=== PATIENT | female | born 1960 | race Caucasian/White ===

== ENCOUNTER 2019-12-18 08:00 | Outpatient (REF) | payer MEDICARE, SELFPAY | END 2019-12-18 08:01 | disposition home or self-care (01) | LOC: HO.RADIR 08:00 | PROVIDERS: Visit Provider Anesthesiology | DX: Z45.1 Encounter for adjustment and management of infusion pump (principal) | CPT/HCPCS: 62370 ==

== ENCOUNTER 2019-12-31 06:48 | Outpatient (REF) | payer MEDICARE, SELFPAY | END 2019-12-31 06:49 | disposition home or self-care (01) | LOC: HO.LAB 06:48 | PROVIDERS: Visit Provider Internal Medicine | DX: Z20.828 Contact with and (suspected) exposure to other viral communicable diseases (principal) | CPT/HCPCS: C9803; U0003 ==

== ENCOUNTER 2023-03-07 10:18 | Outpatient (AMB) | payer MEDICARE, SELFPAY ==
--- NOTE | 2023-03-07 10:18 | A.OFFVIS_ITS ---
Intake Intake Visit Reasons: Per discuss concentration Allergies prednisone [PREDNISONE] Allergy (Severe, Unverified 11/08/19 15:18) HIVES, hive cortisone [CORTISONE] Allergy (Intermediate, Unverified 11/08/19 15:18) FLUSHING Iodinated Contrast Media [IV Dye, Iodine Containing] Allergy (Mild, Unverified 11/08/19 15:18) HIVES gabapentin Allergy (Unknown, Verified 10/05/16 00:00) fentanyl [FENTANYL] Adverse Reaction (Severe, Unverified 11/08/19 15:18) VOMITING corn [CORN] Adverse Reaction (Intermediate, Unverified 11/08/19 15:18) N/V/D AND ABD PAIN gluten [GLUTEN] Adverse Reaction (Intermediate, Unverified 11/08/19 15:18) UPSET ABD codeine [Codeine] Adverse Reaction (Mild, Unverified 11/08/19 15:18) VOMITING meperidine [From Demerol] Adverse Reaction (Mild, Unverified 11/08/19 15:18) VOMITING morphine [Morphine] Adverse Reaction (Mild, Unverified 11/08/19 15:18) VOMITING Gluten Allergy (Unknown, Uncoded 10/05/16 00:00) stomach upset,brain fog IVP Dye Allergy (Unknown, Uncoded 10/05/16 00:00) narcotics Allergy (Unknown, Uncoded 10/05/16 00:00) nausea and vomiting Anesthetic Maximum Strength Adverse Reaction (Unknown, Uncoded 10/05/16 00:00) nausea and vomiting corn Adverse Reaction (Unknown, Uncoded 10/17/19 00:00) gluten Adverse Reaction (Unknown, Uncoded 10/17/19 00:00) pain meds Adverse Reaction (Unknown, Uncoded 10/17/19 00:00) HPI HPI Comments History of Present Illness Details Jada nielsen is very pleasant 62 years old female who is calling my office today after long period of absence. Originally she came to my office with advanced Complex regional pain syndrome type 1 of the right lower extremity mainly right foot with radiological evidence of bone loss. She went for spinal cord stimulator implant on 06/17/2017. This improved her symptoms for many months however over the past 6 years her Complex regional pain syndrome pain started to worsen and her condition and spinal cord stimulator stop helping her. She reported increasingly painful right foot and ankle symptoms she tried to make adjustments to her Medtronic stimulation several times with no improvement. She went to vascular surgeon Dr. Blue and he found the vascular examination unremarkable. She was referred to us and she was offered intrathecal pain pump procedure. She went for multiple trials of intrathecal drug delivery system pain pump she had trial with morphine, trial with Dilaudid, and trial with fentanyl. Unfortunately she had side effects with all of her opioid medications there. She went for a trial of sufentanyl and this was the only way to alleviate her pain without any side effects. The pain pump was implanted and she had significant pain relief on pain pump implantation. The pain became much more manageable and much less severe. Ambulation improved. Patient had to relocate to [facility] and she started to feel her pump there. The concentration of the medication was increased eventually in her pain pump, recently patient reported 2 episodes of respiratory arrest on pain pump refill. Both of the respiratory arrest were treated with naloxone. She was successfully resuscitated. She does not want to continue to perform pump refills in [place]. She wants to come back to this office to refill for pain pump although it is [address] from [place] [facility]. I explained to the patient that she is welcome to come back for refilling of her pumps here or have her pump refilled in her house with [employer] refill [employer], however I need to know that integrity of her system is intact. She reported to me that she lost a lot of weight and the pain pump she had in her buttock had to be relocated into the abdomen. I explained to her that I will schedule her for dye study interrogation of the pain pump and after that I will be able to assume the care over the patient's pain pump and her painful condition. On the physical exam her right foot was presenting with discoloration, mottling, cool to touch, sausage appearing digits, allodynia, dysesthesia up to the knee anteriorly, nail thickening, mild symptoms on the left foot similar to the right foot. Peripheral pulses +1 dorsalis pedis posterior tibial. Neurologic normal strength tone and reflexes. [facility] Medical History (Updated 03/07/23 @ 12:32 by Miguelangel Proctor MD) Complex regional pain syndrome i of lower limb, bilateral Review of Systems Const All systems reviewed & are unremarkable except as noted in HPI and below Assessment & Plan Assessment & Plan (1) Complex regional pain syndrome i of lower limb, bilateral: Code(s): G90.523 - Complex regional pain syndrome I of lower limb, bilateral Plan: Plan This patient wants to return to my practice to continue pain pump refills here or she considers to refill her pump in her household under my order in [facility]. She was in my office treated for Complex regional pain syndrome of right lower extremity and potentially mild Complex regional pain syndrome of the left lower extremity with intrathecal pain pump running sufentanyl. When she was in my office the concentration of the so fentanyl was 100 micro g per mL. Currently her concentration is 500 micro g per mL. She experienced on 2 of the refills severe episodes of respiratory arrest which was treated with naltrexone. In the order to take over of these pump refills for her I need to perform a dye study to make sure that there was no extravasation of the contrast in her system. The concentration was decreased to 250 micro g per mL but with her doses of the medication she has to have her pump refilled once in 6 weeks. I will schedule her for dye studies and after that I will assume the care of this patient with her pain pump. If I will see extravasation I probably would need to perform revision of this pain pump. Patient Instructions: It was very prolonged and difficult discussion where I had to explore social circumstances of this patient. Including her insurance her place of living and her prior records. I testify here by that the conversation, exploration, prior record ring, organizing this note took total of 45 minutes. Telehealth Telehealth Location of provider rendering services: practice address Location of patient: address on file Patient Identification confirmed using: Name, : Yes Telehealth method: voice only Patient verbally consented to treatment: Yes Patient verbally consented to billing insurance company: Yes Patient informed of any privacy concerns related to visit: Yes Coding Level of Care Code Tele Est Pt Level 5 (85254) Diagnoses Complex regional pain syndrome i of lower limb, bilateral G90.523
== END 2023-03-07 10:45 | disposition home or self-care (01) ==
LOC: HO.PMC 10:18
PROVIDERS: PCP Family Medicine; Visit Provider Anesthesiology
DX: G90.523 Complex regional pain syndrome I of lower limb, bilateral (principal)
CPT/HCPCS: 99443

== ENCOUNTER → 2023-03-07 10:18 | Outpatient (BNVA) | payer MEDICARE, SELFPAY | PROVIDERS: PCP Family Medicine; Visit Provider Anesthesiology ==

== ENCOUNTER 2023-04-25 13:19 | Outpatient (AMB) | payer MEDICARE, SELFPAY ==
--- NOTE | 2023-04-25 13:19 | A.OFFVIS_ITS ---
Intake Intake Visit Reasons: QUESTIONS ABOUT [facility] PUMP REFILLS/confirm Allergies prednisone [PREDNISONE] Allergy (Severe, Verified 04/25/23 13:20) HIVES, hive cortisone [CORTISONE] Allergy (Intermediate, Verified 04/25/23 13:20) FLUSHING Iodinated Contrast Media [IV Dye, Iodine Containing] Allergy (Mild, Verified 04/25/23 13:20) HIVES gabapentin Allergy (Unknown, Verified 04/25/23 13:20) Unknown fentanyl [FENTANYL] Adverse Reaction (Severe, Verified 04/25/23 13:20) VOMITING corn [CORN] Adverse Reaction (Intermediate, Verified 04/25/23 13:20) N/V/D AND ABD PAIN gluten [GLUTEN] Adverse Reaction (Intermediate, Verified 04/25/23 13:20) UPSET ABD codeine [Codeine] Adverse Reaction (Mild, Verified 04/25/23 13:20) VOMITING meperidine [From Demerol] Adverse Reaction (Mild, Verified 04/25/23 13:20) VOMITING morphine [Morphine] Adverse Reaction (Mild, Verified 04/25/23 13:20) VOMITING Gluten Allergy (Unknown, Uncoded 10/05/16 00:00) stomach upset,brain fog IVP Dye Allergy (Unknown, Uncoded 04/25/23 13:20) Unknown narcotics Allergy (Unknown, Uncoded 10/05/16 00:00) nausea and vomiting Anesthetic Maximum Strength Adverse Reaction (Unknown, Uncoded 10/05/16 00:00) nausea and vomiting corn Adverse Reaction (Unknown, Uncoded 04/25/23 13:20) Unknown gluten Adverse Reaction (Unknown, Uncoded 04/25/23 13:20) Unknown pain meds Adverse Reaction (Unknown, Uncoded 04/25/23 13:20) Unknown HPI HPI Comments History of Present Illness Details Jada is again on the telephone to discuss possible further treatment. Lots of things could be tried for her if she lives nearby in [place]. However if she is staying in the [place] it is very difficult for me to manage her pump. We could have tried to give her some rest time from opioids substituting her so fentanyl with bupivacaine. Initially she was on bupivacaine and received good results however with increase of the dose she started to feel paradoxical burning tingling pins and needle sensation. Obviously in [place] as she stated no one wants to handle her sufentanyl but 1 physician who is increasing her continuous pak fentanyl rate, however on demand her doses very small 3 micro g on demand 3 times a day. Therefore her problem is mostly social and I would be glad to try to help her pain here however she needs to be able to visit us quite frequently. For that she needs to move somewhere nearby but it means for her to sell her property in [place]. Prior : Originally she came to my office with advanced Complex regional pain syndrome type 1 of the right lower extremity mainly right foot with radiological evidence of bone loss. She went for spinal cord stimulator implant on 06/17/2017. This improved her symptoms for many months however over the past 6 years her Complex regional pain syndrome pain started to worsen and her condition and spinal cord stimulator stop helping her. She reported increasingly painful right foot and ankle symptoms she tried to make adjustments to her Medtronic stimulation several times with no improvement. She went to vascular surgeon Dr. Blue and he found the vascular examination unremarkable. She was referred to us and she was offered intrathecal pain pump procedure. She was tried with bupivacaine 1st however with increase of the dose she felt dizzy dizzy in the lower feet . Whenever tried hydromorphone/Dilaudid. Unfortunately she had side effects with all of her opioid medications there. She went for a trial of sufentanyl and this was the only way to alleviate her pain without any side effects. The pain pump was implanted and she had significant pain relief on pain pump implantation. The pain became much more manageable and much less severe. Ambulation improved. Patient had to relocate to [facility] and she started to feel her pump there. The concentration of the medication was increased eventually in her pain pump, recently patient reported 2 episodes of respiratory arrest on pain pump refill. Both of the respiratory arrest were treated with naloxone. She was successfully resuscitated. She does not want to continue to perform pump refills in [place]. She wants to come back to this office to refill for pain pump although it is [address] to [address] from [place] to this office. I explained to the patient that she is welcome to come back for refilling of her pumps here or have her pump refilled in her house with [employer] refill [employer], however I need to know that integrity of her system is intact. She reported to me that she lost a lot of weight and the pain pump she had in her buttock had to be relocated into the abdomen. I explained to her that I will schedule her for dye study interrogation of the pain pump and after that I will be able to assume the care over the patient's pain pump and her painful condition. On the physical exam her right foot was presenting with discoloration, mottling, cool to touch, sausage appearing digits, allodynia, dysesthesia up to the knee anteriorly, nail thickening, mild symptoms on the left foot similar to the right foot. Peripheral pulses +1 dorsalis pedis posterior tibial. Neurologic normal strength tone and reflexes. [facility] Medical History (Updated 03/07/23 @ 12:32 by Miguelangel Proctor MD) Complex regional pain syndrome i of lower limb, bilateral Review of Systems Const All systems reviewed & are unremarkable except as noted in HPI and below Assessment & Plan Assessment & Plan (1) Complex regional pain syndrome i of lower limb, bilateral: Code(s): G90.523 - Complex regional pain syndrome I of lower limb, bilateral Plan: Plan It is not very practical for us to perform her pump refills in [place] while we are doing the adjustments. The adjustments needs to be made frequently and needs to be done in the office. Unfortunately she needs to relocate here for us to manage her pump. The relocation might be at least temporary for several months. Once she is stable and does not require any new pump adjustments we can change her 4 the pump refills at home under [facility] home refills. Patient Instructions: I here by testify that I spent 33 minutes in conversation with this patient as well as planning her care and organizing this note. Telehealth Telehealth Location of provider rendering services: practice address Location of patient: address on file Patient Identification confirmed using: Name, : Yes Telehealth method: voice only Patient verbally consented to treatment: Yes Patient verbally consented to billing insurance company: Yes Patient informed of any privacy concerns related to visit: Yes Coding Level of Care Code Tele Est Pt Level 4 (83281) Diagnoses Complex regional pain syndrome i of lower limb, bilateral G90.523
== END 2023-04-25 13:30 | disposition home or self-care (01) ==
LOC: HO.PMC 13:19
PROVIDERS: PCP Family Medicine; Visit Provider Anesthesiology
DX: G90.523 Complex regional pain syndrome I of lower limb, bilateral (principal)
CPT/HCPCS: 99443

== ENCOUNTER → 2023-04-25 13:19 | Outpatient (BNVA) | payer MEDICARE, SELFPAY | PROVIDERS: PCP Family Medicine; Visit Provider Anesthesiology ==